=== PATIENT | male | born 1950 | race Caucasian/White ===

== ENCOUNTER 2022-12-04 15:28 | Emergency (ER) | payer MEDICARE, BC ==
[~2022-12-04 15:28] MED LIST: Iopamidol 300 61% 100 ML VIAL FS ONE
[2022-12-04] MEDS ORDERED: methylPREDNISolone Sod Succ/PF 125 MG/2 ML VIAL ONE (16:39)
[2022-12-04] MEDS ORDERED: cefTRIAXone\\ROCEPHIN 1 GM VIAL ONE (16:40)
[2022-12-04] MEDS ORDERED: Vancomycin 1.5 GRAM/300 ML BAG 1.5 GM in Premix Bag 1 BAG IVPB SCH ×2 (17:00→20:45)
[2022-12-04 17:12] LABS: #Basophils 0.1 10x3/uL (0.0-0.2); #Monocytes 1.3 10x3/uL (0.0-1.1); #Neutrophils 9.1 10x3/uL (1.5-8.4); %Basophils 0.5 % (0.0-2.0); %Eosinophils 0.2 % (0.0-6.0); %Lymphocytes 12.1 % (18.0-47.0); %Monocytes 10.8 % (0.0-10.0); %Neutrophils 76.1 % (40.0-75.0); Hemoglobin 17.8 g/dL (13.5-17.5); Mean Corpuscular Hemoglobin 29.9 pg (27.0-33.0); Mean Corpuscular Volume 85.5 fl (81.2-95.1); Mean Platelet Volume 9.5 fl (7.4-10.4); Platelet Count 159 10x3/uL (150-450); RBC Distribution Width 13.9 % (11.5-14.5); Red Blood Cell (RBC) Count 5.95 10x6/uL (4.32-5.72); White Blood Cell (WBC) Count 11.9 10x3/uL (3.5-10.5)
[2022-12-04 17:15] LABS: ALT (SGPT) 22 U/L (8-55); AST (SGOT) 19 U/L (5-34); Albumin 4.8 g/dL (3.4-4.8); Alkaline Phosphatase 40 U/L (40-110); Anion Gap 16 mmol/L (10-20); BUN (Urea Nitrogen) 12 mg/dL (8.4-25.7); Bilirubin, Total 1.3 mg/dL (0.2-1.2); Calc. Creatinine Clearance 0 mL/min (70-130); Carbon Dioxide 22 mmol/L (23-31); Chloride 103 mmol/L (98-107); Estimated GFR 80; Globulin 3.2 g/dL (2.4-3.5); Glucose 110 mg/dL (83-110); Sodium 137 mmol/L (136-145)
[2022-12-04 19:23] LABS: SARS-CoV-2 NAA Rapid Test Not Detected (NotDetected)
[2022-12-04] MEDS ORDERED: predniSONE 20 MG TAB PO SCH (20:45)
[2022-12-04] MEDS ORDERED: predniSONE 20 MG TAB ONE (20:49)
== END 2022-12-04 20:34 | disposition home or self-care (01) ==
LOC: CSHERS 15:28
DX: R13.10 Dysphagia, unspecified (principal); Z20.822 Contact with and (suspected) exposure to COVID-19; I10 Essential (primary) hypertension; E11.9 Type 2 diabetes mellitus without complications; Z87.891 Personal history of nicotine dependence
CPT/HCPCS: 70491; 80053; 83605; 85025; 86140; 87040; 87804 ×2; J3370; U0002; 36415; 96365; 96366; 96367; 96375; J0696; J2930; J7512; Q9967